=== PATIENT | male | born 1995 | race Caucasian/White ===

== ENCOUNTER 2018-05-13 01:32 | Emergency (ER) | payer OTHER, SELFPAY ==
[2018-05-13 01:39] VITALS: BP 124/84; PULSE 81; RESP 16; TEMP 36.6; O2SAT 98
[2018-05-13 01:41] VITALS: BP 124/81; PULSE 81; RESP 16; TEMP 36.6; O2SAT 98; BMI 25.4
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
[2018-05-13] MEDS: OFLOXACIN 0.3% OPHTH PREPACK 1 BOTTLE MISC (02:34)
[2018-05-13] MEDS: TRAMADOL 50 MG PREPACK 1 BOTTLE MISC (02:34)
[2018-05-13] MEDS: TET,DIPH,PERTUSS(ACELL),VAC/PF 0.5 ML SYRINGE IM (02:35)
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
[2018-05-13 02:43] VITALS: BP 121/79; RESP 15; O2SAT 98
== END 2018-05-13 02:43 | disposition home or self-care (01) ==
PROVIDERS: Emergency Provider Emergency Medicine
DX: T15.02XA Foreign body in cornea, left eye, initial encounter (principal); H18.892 Other specified disorders of cornea, left eye
CPT/HCPCS: 65222; 90471; 99283; 90715

== ENCOUNTER 2018-05-14 08:15 | Outpatient (RCR) | payer OTHER, SELFPAY ==
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
--- NOTE | 2017-12-26 16:20 | PT.OPPOC ---
Current Diagnoses Complex tear of medial meniscus, current injury, left knee, subsequent encounter (12/26/17) Sprain of medial collateral ligament of left knee, initial encounter (12/26/17) Sprain of anterior cruciate ligament of left knee, subsequent encounter (12/26/17) Provider Visit Care Team Role Provider Type Rohan Cummings Attending Provider Non-Staff Specialty: Medical Address: [address] [place] [address], [id number] Email: Plan Of Care PT-OP-T Assessment and Plan Start: 12/26/17 15:01 Freq: Status: Active Protocol: Document 12/26/17 15:53 EA (Rec: 12/26/17 16:19 EA [id number]) Physical Therapy Assessment Rehab Potential Rehabilitation Potential Good Evaluation Complexity Number of Personal Factors/Comorbidities 0 Number of Body Systems Impaired 1-2 Clinical Presentation at Evaluation Stable Impairments Impairments Functional Activities Gait Pain ROM Strength Goals Five Impairment 1.5' over right knee at mid joint circumference Louver Mortiser Operator Goal (LTG) Will decrease mid joint circumference by 1 inch LTG Duration 4 wks Four Impairment Calf muscular tightness/ grade 2 tenderness Louver Mortiser Operator Goal (LTG) Grade 1 tenderness to calf LTG Duration 4 wks Three Impairment Knee flexion 0-22 degrees Louver Mortiser Operator Goal (LTG) Knee flexion 0-90 LTG Duration 5 wks Two Impairment LEFS score 30/80 Louver Mortiser Operator Goal (LTG) LEFS score of 50/10 LTG Duration 4 wks One Impairment PS of 4/10 to left LE Louver Mortiser Operator Goal (LTG) PS of 1/10 LTG Duration 4 wks Assessment Summary Assessment Pleasant 22 y/o male patient s /p left knee ACL/MCL on repair who's wound is healing normal, however exhibited weakness and muscular stiffness w/ guarding to left calf and knee musculature. No signs of DVT noted during assessment. Due to current physical problems, patient have difficulty in all ADL's. Patient would benefit with skilled PT to address the aforementioned issues and be able to reach treatment goals according to recovery protocol. Patient exhibits good rehab potential. Physical Therapy Plan Frequency and Duration Frequency of Treatment 2x/Week Plan of Care Start Date 12/26/17 Plan of Care End Date 03/06/18 Therapeutic Interventions Therapeutic Interventions Coordination Training Gait Training Home Exercise Program Joint Mobilizations Manual Therapy Neuromuscular Re-education Patient/Caregiver Education Self-Care/Home Management Soft Tissue Mobilization Taping Therapeutic Exercises Modalities Cold Pack/Ice Massage Electric Stimulation Ultrasound Next Visit Focus/Plan Next Visit Plan Begin Acute phase of rehab: Decreased pain and improved AROM. Prevent muscular atrophy and joint stiffness. Plan of Care Dates Plan of Care Start Date 12/26/17 Plan of Care End Date 03/06/18 Please Sign and Return: I have reviewed this Plan of Care and certify that the skilled therapy services above are required to meet the patient???s needs. Physician Signature Date Printed Name and Credentials
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
--- NOTE | 2018-03-06 12:46 | PT.OPPOC ---
Current Diagnoses Complex tear of medial meniscus, current injury, left knee, subsequent encounter (03/06/18) Sprain of medial collateral ligament of left knee, initial encounter (03/06/18) Sprain of anterior cruciate ligament of left knee, subsequent encounter (03/06/18) Provider Visit Care Team Role Provider Type Rohan Cummings Attending Provider Non-Staff Specialty: Medical Address: [address] [place] [address], [id number] Email: Plan Of Care PT-OP-T Assessment and Plan Start: 12/26/17 15:01 Freq: Status: Active Protocol: Document 03/06/18 12:36 EA (Rec: 03/06/18 12:45 EA [id number]) Physical Therapy Assessment Goals Five Impairment 1.5' over right knee at mid joint circumference Circulation Manager Goal (LTG) Will decrease mid joint circumference by 1 inch LTG Duration goal reached Four Impairment Calf muscular tightness/ grade 2 tenderness Circulation Manager Goal (LTG) Grade 1 tenderness to calf LTG Duration goal reached Three Impairment Knee flexion 0-22 degrees Snf Goal (LTG) Knee flexion 0-120 LTG Duration 5 wks Two Impairment LEFS score 59/80 Snf Goal (LTG) LEFS score of 70/80 LTG Duration 4 wks One Impairment PS of 4/10 to left LE Circulation Manager Goal (LTG) PS of 1/10 LTG Duration Goal reached Progress Towards Goals Progress Towards Goals Progressing Toward Goals Progress Comments Most goals reached to this date except with knee ROM. Assessment Summary Assessment Patient is progressing well as to functional transfers and mobility; Inability to move beyond 83deg of knee flexion limited by soft tissue tightness; at this time however is not safe to perform aggressive stretching which will be depend with doctors discretion. Continue with current program, advance as tolerated, or to follow surgeon protocol if any. Physical Therapy Plan Frequency and Duration Frequency of Treatment 2x/Week Plan of Care Start Date 03/06/18 Plan of Care End Date 04/24/18 Next Visit Focus/Plan Next Note Type Treatment Note Next Visit Plan to follow surgeon's specific recommendation if any; otherwise cont with current program; advance as tolerated. Increase ROM Plan of Care Dates Plan of Care Start Date 03/06/18 Plan of Care End Date 04/24/18 Please Sign and Return: I have reviewed this Plan of Care and certify that the skilled therapy services above are required to meet the patient?s needs. Physician Signature Date Printed Name and Credentials Clinical Instructor Signature Printed Name and Credentials
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
--- NOTE | 2018-04-22 13:13 | PT.OPPOC ---
Current Diagnoses Complex tear of medial meniscus, current injury, left knee, subsequent encounter (04/22/18) Sprain of medial collateral ligament of left knee, initial encounter (04/22/18) Sprain of anterior cruciate ligament of left knee, subsequent encounter (04/22/18) Provider Visit Care Team Role Provider Type Rohan Cummings Attending Provider Non-Staff Specialty: Medical Address: [address] [place] [address], [id number] Email: Plan Of Care PT-OP-T Assessment and Plan Start: 12/26/17 15:01 Freq: Status: Active Protocol: Document 04/22/18 08:22 EA (Rec: 04/22/18 09:04 EA [id number]) Physical Therapy Assessment Rehab Potential Rehabilitation Potential Good Impairments Impairments Functional Activities Gait Pain ROM Strength Goals Eight Impairment left knee flexion 100 deg Correction Goal (LTG) Patient will increase knee flecion to 125 degrees for functional mobility LTG Duration 4 wks Seven Impairment Decreased left knee extensors. Trans Router Goal (LTG) Patient will increase knee extensor by 1/2 to 1 grade to improve functional mobility. Six Impairment Slight antalgic gait Correction Goal (LTG) Patient will exhibit near to normal gait pattern LTG Duration 3 wks Five Impairment 1.5' over right knee at mid joint circumference Trans Router Goal (LTG) Will decrease mid joint circumference by 1 inch LTG Duration goal reached Four Impairment Calf muscular tightness/ grade 2 tenderness Correction Goal (LTG) Grade 1 tenderness to calf LTG Duration goal reached Three Impairment Knee flexion 0-22 degrees Trans Router Goal (LTG) Knee flexion 0-120 LTG Duration 3 wks Two Impairment LEFS score 59/80 Correction Goal (LTG) LEFS score of 70/80 LTG Duration 3 wks One Impairment PS of 4/10 to left LE Correction Goal (LTG) PS of 1/10 LTG Duration Goal reached Progress Towards Goals Progress Towards Goals Progressing Toward Goals Assessment Summary Assessment Pt exhibits improved functional mobility and and activity tolerance. Weakness to left quads and limited knee flexion ROM seems to limit maximum potential at this time . Therefore, patient would cont. to benefit with skilled PT to address left knee strength and ROM. Physical Therapy Plan Frequency and Duration Plan of Care Start Date 04/22/18 Plan of Care End Date 05/20/18 Therapeutic Interventions Therapeutic Interventions Coordination Training Gait Training Home Exercise Program Joint Mobilizations Manual Therapy Neuromuscular Re-education Patient/Caregiver Education Self-Care/Home Management Soft Tissue Mobilization Taping Therapeutic Exercises Modalities Cold Pack/Ice Massage Electric Stimulation Ultrasound Next Visit Focus/Plan Next Note Type Treatment Note Next Visit Plan Advance as tolerated Plan of Care Dates Plan of Care Start Date 04/22/18 Plan of Care End Date 05/20/18 Please Sign and Return: I have reviewed this Plan of Care and certify that the skilled therapy services above are required to meet the patient?s needs. Physician Signature Date Printed Name and Credentials Clinical Instructor Signature Printed Name and Credentials
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
--- NOTE | 2018-05-14 11:10 | PT.OPPOC ---
Current Diagnoses Complex tear of medial meniscus, current injury, left knee, subsequent encounter (05/14/18) Sprain of medial collateral ligament of left knee, initial encounter (05/14/18) Sprain of anterior cruciate ligament of left knee, subsequent encounter (05/14/18) Provider Visit Care Team Role Provider Type Rohan Cummings Attending Provider Non-Staff Specialty: Medical Address: [address] [place] [address], [id number] Email: Plan Of Care PT-OP-T Assessment and Plan Start: 12/26/17 15:01 Freq: Status: Active Protocol: Document 05/14/18 08:20 EA (Rec: 05/14/18 09:00 EA [id number]) Physical Therapy Assessment Impairments Impairments Functional Activities Gait Pain ROM Strength Goals Eight Impairment left knee flexion 105 deg Custodial Goal (LTG) Patient will increase knee flecion to 125 degrees for functional mobility LTG Duration 3 wks progressing well Seven Impairment Decreased left knee extensors. Custodial Goal (LTG) Patient will increase knee extensor by 1/2 to 1 grade to improve functional mobility. LTG Duration 3 wks Six Impairment Slight antalgic gait Custodial Goal (LTG) Patient will exhibit near to normal gait pattern LTG Duration 2 wks progressing well Five Impairment 1.5' over right knee at mid joint circumference Custodial Goal (LTG) Will decrease mid joint circumference by 1 inch LTG Duration goal reached Four Impairment Calf muscular tightness/ grade 2 tenderness Rip Tailer Goal (LTG) Grade 1 tenderness to calf LTG Duration goal reached Three Impairment Knee flexion 0-22 degrees Custodial Goal (LTG) Knee flexion 0-120 LTG Duration 3 wks (progressing well) Two Impairment LEFS score 62/80 Rip Tailer Goal (LTG) LEFS score of 70/80 LTG Duration 3 wks (progressing well) Assessment Summary Assessment Pt tolerated treatment well. Knee flexion reached 110 degrees passively at this time . Noted no hyperextension at this time and antalgic gait manifested with fast mo. Overall patient is progressing well. Continue with current plan. Advance as tolerated. Physical Therapy Plan Frequency and Duration Frequency of Treatment 1x/Week Duration of Treatment 3 Plan of Care Start Date 05/14/18 Plan of Care End Date 06/04/18 Therapeutic Interventions Therapeutic Interventions Coordination Training Gait Training Home Exercise Program Joint Mobilizations Manual Therapy Neuromuscular Re-education Patient/Caregiver Education Self-Care/Home Management Soft Tissue Mobilization Taping Therapeutic Exercises Modalities Cold Pack/Ice Massage Electric Stimulation Ultrasound Next Visit Focus/Plan Next Note Type Treatment Note Next Visit Plan Advance as tolerated Plan of Care Dates Plan of Care Start Date 05/14/18 Plan of Care End Date 06/04/18 Please Sign and Return: I have reviewed this Plan of Care and certify that the skilled therapy services above are required to meet the patient?s needs. Physician Signature Date Printed Name and Credentials Clinical Instructor Signature Printed Name and Credentials
== END 2018-05-15 11:16 ==
LOC: PHYS 08:15
PROVIDERS: Visit Provider Orthopaedic Surgery
DX: S83.512D Sprain of anterior cruciate ligament of left knee, subsequent encounter (principal); S83.412A Sprain of medial collateral ligament of left knee, initial encounter; S83.232D Complex tear of medial meniscus, current injury, left knee, subsequent encounter
CPT/HCPCS: 97010; 97014; 97110; 97116; 97140; 97161; 97535; G0283